=== PATIENT | male | born 2000 | race Hispanic/Latino ===

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

== ENCOUNTER 2020-09-04 08:01 | Day surgery (SDC) | payer BC ==
[2020-09-04] MEDS ORDERED: Ringers Lactate 1,000 ML IV ONE (08:38)
[2020-09-04] MEDS ORDERED: propofoL 200 MG/20 ML VIAL IV ONE (08:48)
[2020-09-04] MEDS ORDERED: LIDOCAINE 1% MPF 30 ML VIAL ONE (08:48)
--- NOTE | 2020-09-04 09:04 | ENDO RPT ---
[address], [address] EGD PROCEDURE REPORT EXAM DATE: 09/04/2020 PATIENT NAME: Ángel Woodruff MR#: [id number] BIRTHDATE: 2000 ATTENDING: [address] STATUS: outpatient [employer] ARCHITECT: Kely Murrieta RN and Steph Clifford INDICATIONS: The patient is a 20 yr old Male here for an EGD due to mid epigastric abdominal pain, bloating, belching, dyspepsia, GERD, and heartburn PROCEDURE PERFORMED: EGD with biopsy MEDICATIONS: Per Anesthesia. TOPICAL ANESTHETIC: none CONSENT: The patient understands the risks and benefits of the procedure and understands that these risks include, but are not limited to: sedation, allergic reaction, infection, perforation and/or bleeding. Alternative means of evaluation and treatment include, among others: physical exam, x-rays, and/or surgical intervention. The patient elects to proceed with this endoscopic procedure. DESCRIPTION OF PROCEDURE: During intra-op preparation period all mechanical medical equipment was checked for proper function. Hand hygiene and appropriate measures for infection prevention was taken. Procedure, possible complications, and alternatives including but not limited to the possibility of bleeding, perforation, tear, infection, sepsis, need for surgery, need for blood transfusion, and anesthesia related complications were explained to the patient. After the risks, benefits and alternatives of the procedure were thoroughly explained, Informed consent was verified, confirmed and timeout was successfully executed by the treatment team. The patient was placed in the left lateral position. The patient was anesthetized with topical anesthesia. Through the anesthetized oropharyngeal area, the scope was passed without any difficulty. The Pentax EG-[id number] ([id number]) endoscope was introduced through the mouth and advanced to the second portion of the duodenum. Retroflexed views revealed a small hiatal hernia. The gastroscope was then slowly withdrawn and removed. LA Class A esophagitis was found in the lower esophagus. A small hiatal hernia was found Mild gastritis was found in the antrum. Multiple biopsies were obtained and sent to pathology. Multiple (3) erosions with mild surrouding edema were found in the antrum. ADVERSE EVENTS: There were no complications. IMPRESSIONS: 1. LA class A esophagitis in the lower esophagus 2. Small hiatal hernia 3. Mild gastritis in the antrum, s/p biopsies 4. Multiple (3) erosions with mild surrouding edema in the antrum RECOMMENDATIONS: 1. await biopsy results 2. acid suppression therapy REPEAT EXAM: Rodriguez Cueva Dr eSigned: Rodriguez Cueva Dr 09/04/2020 9:04 AM cc: CPT CODES: ICD9 CODES: PATIENT NAME: Ángel Woodruff MR#: [id number]
[2020-09-04 10:42] VITALS: TEMP 97.3
[2020-09-04 10:43] VITALS: BP 129/77; O2SAT 99
== END 2020-09-04 09:40 | disposition home or self-care (01) ==
LOC: OR 08:01
PROVIDERS: ATTEND Internal Medicine Gastroenterology
PROC: 0DB68ZX Excision of Stomach, Via Natural or Artificial Opening Endoscopic, Diagnostic (ICD-10-PCS; principal; 2020-09-04 09:00)
DX: K29.50 Unspecified chronic gastritis without bleeding (principal); K21.9 Gastro-esophageal reflux disease without esophagitis; R12 Heartburn; R14.2 Eructation; R14.0 Abdominal distension (gaseous); K44.9 Diaphragmatic hernia without obstruction or gangrene; K25.9 Gastric ulcer, unspecified as acute or chronic, without hemorrhage or perforation; Z20.822 Contact with and (suspected) exposure to COVID-19
CPT/HCPCS: 88312; 88305; 43239; U0003; J2704; J7120

== ENCOUNTER 2022-10-05 17:01 | Emergency (ER) | payer BC ==
--- OUTSIDE RECORDS SUMMARY | 2022-10-05 17:08 | XMS REPORT | Continuity of Care Document ---
:2000 Author Organization [facility] t Address [address] [place] [address] Care Team Providers Name Role Phone KALYANI ROSENTHAL Primary Care Physician Unavailable Radha Jeff Attending Clinician Unavailable JOHANA ENRIQUEZ Attending Clinician Unavailable Zoe DEALER DEVELOPMENT MANAGERJohana Attending Clinician Yas Laboy RN Attending Clinician Unavailable Only, [place] Db Test Attending Clinician Unavailable Suzette Ordonez Attending Clinician SUZETTE OCAMPO Attending Clinician Unavailable SHAQ ZHANG Attending Clinician Unavailable Arun Aguilar MD Attending Clinician ARUN AGUILAR Attending Clinician Unavailable Doctor Unassigned, [place] Attending Clinician Unavailable Rodriguez Cueva Attending Clinician Unavailable Shayy Rivas Attending Clinician SHAYY LAM Attending Clinician Unavailable Nurse, [facility] Attending Clinician Unavailable Lab, Ad[facility] Fam Pob I Attending Clinician Unavailable Vicente DEALER DEVELOPMENT MANAGERShaq Richey Attending Clinician Kalyani Rosenthal Attending Clinician Isaak Jack Attending Clinician Michelle Martinez DO Attending Clinician Payers Payer Name Policy Type Policy Number Effective Date Expiration Date Curtis aguilar [employer] [place] [id number] 2009 00:00:00 Problems Condition Condition Condition Status Onset Resolution Last Treating Co mments Source Name Details Category Date Date Treatment Clinician Date Abnormal Abnormal Disease Active Unive rs weight weight 2-20 ity of gain gain 00:00: [place] 00 Medical Branch Family Family Disease Active Univers history of history of 2-20 it y of thyroid thyroid 00:00: [place] disease disease 00 Medical Branch Mixed Mixed Disease Active Univers hyperlipid hyperlipid 2-20 it y of emia emia 00:00: [place] 00 Medical Branch Nonspecifi Nonspecifi Disease Active U nivers c abnormal c abnormal 2-20 it y [place] thyroid thyroid 00 Medical function function Branch study study Joint pain Joint pain Disease Active U nivers 2-20 ity of 00:00: [place] 00 Medical Branch Allergies, Adverse Reactions, Alerts Allergy Allergy Status Severity Reaction(s) Onset Inactive Treating Comm ents Source Name Type Date Date Clinician CEFDINIR DRUG Active Med Hives 2020-0 Univers INGREDI 3-06 ity of 00:00: [place] 00 Medical Branch Cefdinir Propensi Active Hives 20200 Univer s ty to 3-06 ity of adverse 00:00: [place] reaction 00 Medical s Branch Social History Social Habit Start Date Stop Date Quantity Comments Source Exposure to Not sure [facility] SARS-CoV-2 (event) Medica l Branch Tobacco use and 2020-12-19 2020-12-19 Never used [facility] exposure 00:00:00 00:00:00 Medical Branch Sex Assigned At 2000 2000 [facility] 00:00:00 00:00:00 Medical Branch Smoking Status Start Date Stop Date Source Former smoker 2020-12-19 00:00:00 2020-12-19 00:00:00 [facility] ty [facility] [place] [facility] Unknown if ever smoked Universit y [facility] Medications Ordered Filled Start Stop Current Ordering Indication Dosage Frequency Signature Comments Components Source Medication Medication Date Date Medication? Clinician (SIG) Name Name jill 2 2020-05 Yes APPLY Unive rs % ointment 1-08 TWICE ity of 00:00: DAILY FOR [place] 00 1 WEEK. Medical Branch sulfamethox 2020-05 Yes TAKE 1 Univ ers azole-trime 1-08 TABLET BY ity of thoprim 00:00: MOUTH [place] 800-160 mg 00 TWICE Medical per tablet DAILY FOR Bran ch 10 DAYS. acetaminoph 2019-05 2020- No 975mg 975 mg, U nivers en -19 03-30 Oral, ity of (TYLENOL) 03:00: 02:16 ONCE, 1 [place] tablet 975 00 :00 dose, Wed Medi mandeep mg 03/29/20 Branch at 2100, Routine benzonatate 2019-05 Yes [id number] 100mg Take 1 Univers 100 mg 1-18 capsule by ity of capsule 00:00: mouth [address] [place] [address] ([facility]) Medical times [place] daily as needed for Cough. benzonatate 2019-05 Yes [id number] 100mg Take 1 Univers 100 mg 1-18 capsule by ity of capsule 00:00: mouth [address] [place] [address] ([facility]) Medical times [place] daily as needed for Cough. benzonatate 2019-05 Yes [id number] 100mg Take 1 Univers 100 mg 1-18 capsule by ity of capsule 00:00: mouth [address] [place] [address] ([facility]) Medical times Branch daily as needed for Cough. benzonatate 2019-05 Yes [id number] 100mg Take 1 Univers 100 mg 1-18 capsule by ity of capsule 00:00: mouth [address] [place] [address] ([facility]) Medical times Branch daily as needed for Cough. benzonatate 2019-05 Yes [id number] 100mg Take 1 Univers 100 mg 1-18 capsule by ity of capsule 00:00: mouth [address] [place] [address] ([facility]) Medical times Branch daily as needed for Cough. benzonatate 2019-05 Yes [id number] 100mg Take 1 Univers 100 mg 1-18 capsule by ity of capsule 00:00: mouth [address] [place] [address] ([facility]) Medical times Branch daily as needed for Cough. benzonatate 2019-05 Yes [id number] 100mg Take 1 Univers 100 mg 1-18 capsule by ity of capsule 00:00: mouth 3 00 (three) Medical times Branch daily as needed for Cough. benzonatate 2020-1 Yes [id number] 100mg Take 1 Univers 100 mg 1-18 capsule by ity of capsule 00:00: mouth 3 00 (three) Medical times Branch daily as needed for Cough. tetanus-dip 2020-0 2020- No .5mL 0.5 mL, Un farrah htheria 3-07 03-07 Intramuscu ity o f toxoids 06:45: 06:33 lar, ONCE, Tyson as (TDVAX) 2-2 00 :00 1 dose, Medic al Lf unit/0.5 07/17/19 Br anch mL at 0045, injection Routine 0.5 mL ibuprofen 2020-0 Yes [id number] 800mg Take 1 Univers 800 mg 3-07 tablet by ity of tablet 00:00: mouth [place] 00 every 8 Medical (eight) Branch hours as needed for Pain (scale 1-3). ibuprofen 2020-0 Yes [id number] 800mg Take 1 Univers 800 mg 3-07 tablet by ity of tablet 00:00: mouth [place] 00 every 8 Medical (eight) Branch hours as needed for Pain (scale 1-3). ibuprofen 2020-0 Yes [id number] 800mg Take 1 Univers 800 mg 3-07 tablet by ity of tablet 00:00: mouth [place] 00 every 8 Medical (eight) Branch hours as needed for Pain (scale 1-3). ibuprofen 2020-0 Yes [id number] 800mg Take 1 Univers 800 mg 3-07 tablet by ity of tablet 00:00: mouth [place] 00 every 8 Medical (eight) Branch hours as needed for Pain (scale 1-3). ibuprofen 2020-0 Yes [id number] 800mg Take 1 Univers 800 mg 3-07 tablet by ity of tablet 00:00: mouth [place] 00 every 8 Medical (eight) Branch hours as needed for Pain (scale 1-3). ibuprofen 2020-0 Yes [id number] 800mg Take 1 Univers 800 mg 3-07 tablet by ity of tablet 00:00: mouth [place] 00 every 8 Medical (eight) Branch hours as needed for Pain (scale 1-3). ibuprofen 2020-0 Yes [id number] 800mg Take 1 Univers 800 mg 3-07 tablet by ity of tablet 00:00: mouth [place] 00 every 8 Medical (eight) Branch hours as needed for Pain (scale 1-3). ibuprofen 2020-0 Yes [id number] 800mg Take 1 Univers 800 mg 3-07 tablet by ity of tablet 00:00: mouth [place] 00 every 8 Medical (eight) Branch hours as needed for Pain (scale 1-3). ibuprofen 2020-0 Yes [id number] 800mg Take 1 Univers 800 mg 3-07 tablet by ity of tablet 00:00: mouth [place] 00 every 8 Medical (eight) Branch hours as needed for Pain (scale 1-3). ibuprofen 2020-0 Yes [id number] 800mg Take 1 Univers 800 mg 3-07 tablet by ity of tablet 00:00: mouth [place] 00 every 8 Medical (eight) Branch hours as needed for Pain (scale 1-3). ibuprofen 2020-0 Yes [id number] 800mg Take 1 Univers 800 mg 3-07 tablet by ity of tablet 00:00: mouth [place] 00 every 8 Medical (eight) Branch hours as needed for Pain (scale 1-3). ibuprofen 2020-0 Yes [id number] 800mg Take 1 Univers 800 mg 3-07 tablet by ity of tablet 00:00: mouth [place] 00 every 8 Medical (eight) Branch hours as needed for Pain (scale 1-3). ibuprofen 2020-0 Yes [id number] 800mg Take 1 Univers 800 mg 3-07 tablet by ity of tablet 00:00: mouth [place] 00 every 8 Medical (eight) Branch hours as needed for Pain (scale 1-3). ibuprofen 2020-0 Yes [id number] 800mg Take 1 Univers 800 mg 3-07 tablet by ity of tablet 00:00: mouth [place] 00 every 8 Medical (eight) Branch hours as needed for Pain (scale 1-3). ibuprofen 2020-0 Yes [id number] 800mg Take 1 Univers 800 mg 3-07 tablet by ity of tablet 00:00: mouth [place] 00 every 8 Medical (eight) Branch hours as needed for Pain (scale 1-3). ibuprofen 2020-0 Yes [id number] 800mg Take 1 Univers 800 mg 3-07 tablet by ity of tablet 00:00: mouth [place] 00 every 8 Medical (eight) Branch hours as needed for Pain (scale 1-3). Immunizations Ordered Filled Immunization Date Status Comments [facility] Immunization Name Name TDAP 2020-12-19 Completed University 00:00:00 [place] [facility] TDAP 2020-12-19 Completed University of 00:00:00 [place] [facility] TDAP 2020-12-19 Completed University of 00:00:00 [place] [facility] TDAP 2020-12-19 Completed University of 00:00:00 [place] [facility] TDAP 2020-12-19 Completed University of 00:00:00 [place] [facility] TDAP 2020-12-19 Completed University of 00:00:00 [place] [facility] Td 2019-07-17 Completed University of 00:00:00 [place] [facility] Td 2019-07-17 Completed University of 00:00:00 [place] [facility] Td 2019-07-17 Completed University of 00:00:00 [place] [facility] Td 2019-07-17 Completed University of 00:00:00 [place] [facility] Td 2019-07-17 Completed University of 00:00:00 [place] [facility] Td 2019-07-17 Completed University of 00:00:00 [place] [facility] Td 2019-07-17 Completed University of 00:00:00 [place] [facility] Td 2019-07-17 Completed University of 00:00:00 [place] [facility] Td 2019-07-17 Completed University of 00:00:00 [place] [facility] Td 2019-07-17 Completed University of 00:00:00 [place] [facility] Td 2019-07-17 Completed University of 00:00:00 [place] [facility] Td 2019-07-17 Completed University of 00:00:00 [place] [facility] Td 2019-07-17 Completed University of 00:00:00 [place] [facility] Td 2019-07-17 Completed University of 00:00:00 [place] [facility] Td 2019-07-17 Completed University of 00:00:00 [place] [facility] Td 2019-07-17 Completed University of 00:00:00 [facility] Branch Vital Signs Vital Name Observation Time Observation Value Comments Source Systolic blood 2021-05-10 23:00:00 133 mm[Hg] Univer sity of pressure [facility] Diastolic blood 2021-05-10 23:00:00 86 mm[Hg] Unive rsity of pressure [facility] Heart rate 2021-05-10 23:00:00 95 /min Universi [facility] Body temperature 2021-05-10 23:00:00 36.89 Maru Univ ersity of [facility] Branch Respiratory rate 2021-05-10 23:00:00 18 /min Univ ersity of [place] [facility] Body height 2021-05-10 23:00:00 177.8 cm Universi ty [facility] [place] [facility] Body weight 2021-05-10 23:00:00 147.873 kg Universi ty [facility] [place] [facility] BMI 2021-05-10 23:00:00 46.78 kg/m2 Universi ty [facility] [place] [facility] Oxygen saturation in 2021-05-10 23:00:00 100 /min University of Arterial blood by [place] Med[facility] mandeep Pulse oximetry Branch Systolic blood 2020-12-19 20:57:00 128 mm[Hg] Univer sity of pressure [place] [facility] Diastolic blood 2020-12-19 20:57:00 66 mm[Hg] Unive rsity of pressure [place] [facility] Heart rate 2020-12-19 20:57:00 98 /min Universi ty of [place] [facility] Body temperature 2020-12-19 20:57:00 36.72 Maru Univ ersity of [place] [facility] Respiratory rate 2020-12-19 20:57:00 17 /min Univ ersity of [place] [facility] Body height 2020-12-19 20:57:00 177.8 cm Universi ty [facility] [place] [facility] Body weight 2020-12-19 20:57:00 149.687 kg Universi ty of [place] [facility] BMI 2020-12-19 20:57:00 47.35 kg/m2 Universi ty [facility] [place] [facility] Oxygen saturation in 2020-12-19 20:57:00 99 /min University of Arterial blood by [place] Medi mandeep Pulse oximetry Branch Oxygen saturation in 2020-03-30 03:00:57 99 /min University of Arterial blood by [place] Medi mandeep Pulse oximetry Branch Heart rate 2020-03-30 03:00:57 87 /min Universi ty of [place] [facility] Body temperature 2020-03-30 03:00:57 37.5 Maru Univ ersity of [place] [facility] Respiratory rate 2020-03-30 03:00:57 18 /min Univ ersity of [place] [facility] Systolic blood 2020-03-30 00:15:00 160 mm[Hg] Univer sity of pressure [place] [facility] Diastolic blood 2020-03-30 00:15:00 96 mm[Hg] Unive rsity of pressure [place] [facility] Body weight 2020-03-30 00:15:00 140.615 kg Universi ty of [place] [facility] Oxygen saturation in 2020-03-30 03:00:57 99 /min University of Arterial blood by [place] Medi mandeep Pulse oximetry Branch Heart rate 2020-03-30 03:00:57 87 /min Universi ty of [place] [facility] Body temperature 2020-03-30 03:00:57 37.5 Maru Univ ersity of [place] [facility] Respiratory rate 2020-03-30 03:00:57 18 /min Univ ersity of [place] [facility] Systolic blood 2020-03-30 00:15:00 160 mm[Hg] Univer sity of pressure [place] [facility] Diastolic blood 2020-03-30 00:15:00 96 mm[Hg] Unive rsity of pressure [place] [facility] Body weight 2020-03-30 00:15:00 140.615 kg Universi ty of [place] [facility] Systolic blood 2019-07-26 20:49:00 148 mm[Hg] Univer sity of pressure [place] [facility] Diastolic blood 2019-07-26 20:49:00 90 mm[Hg] Unive rsity of pressure [place] [facility] Heart rate 2019-07-26 20:49:00 80 /min Universi ty of [place] [facility] Body temperature 2019-07-26 20:49:00 37.28 Maru Univ ersity of [place] [facility] Body weight 2019-07-26 20:49:00 140.615 kg Universi ty of [place] [facility] Oxygen saturation in 2019-07-26 20:49:00 98 /min University of Arterial blood by [facility] mandeep Pulse oximetry Branch Systolic blood 2019-07-26 20:49:00 148 mm[Hg] Univer sity of pressure [place] [facility] Diastolic blood 2019-07-26 20:49:00 90 mm[Hg] Unive rsity of pressure [place] [facility] Heart rate 2019-07-26 20:49:00 80 /min Universi ty of [place] [facility] Body temperature 2019-07-26 20:49:00 37.28 Maru Univ ersity of [place] [facility] Body weight 2019-07-26 20:49:00 140.615 kg Universi ty [facility] [place] [facility] Oxygen saturation in 2019-07-26 20:49:00 98 /min University of Arterial blood by [place] Medi mandeep Pulse oximetry Branch Systolic blood 2019-07-17 06:00:00 163 mm[Hg] Univer sity of pressure [place] [facility] Diastolic blood 2019-07-17 06:00:00 104 mm[Hg] Unive rsity of pressure [facility] Heart rate 2019-07-17 06:00:00 79 /min Universi ty of [facility] Respiratory rate 2019-07-17 06:00:00 17 /min Univ ersity of [facility] Oxygen saturation in 2019-07-17 06:00:00 99 /min University of Arterial blood by [facility] [place] [facility] Pulse oximetry Branch Body temperature 2019-07-17 05:28:00 35.94 Maru Univ ersity of [facility] Body height 2019-07-17 05:28:00 177.8 cm Universi ty of [facility] Body weight 2019-07-17 05:28:00 140.615 kg Universi ty of [facility] BMI 2019-07-17 05:28:00 44.48 kg/m2 Universi ty of [facility] Systolic blood 2019-07-17 06:00:00 163 mm[Hg] Univer sity of pressure [facility] Diastolic blood 2019-07-17 06:00:00 104 mm[Hg] Unive rsity of pressure [facility] Heart rate 2019-07-17 06:00:00 79 /min Universi ty of [facility] Respiratory rate 2019-07-17 06:00:00 17 /min Univ ersity of [facility] Oxygen saturation in 2019-07-17 06:00:00 99 /min University of Arterial blood by [facility] [place] [facility] Pulse oximetry Branch Body temperature 2019-07-17 05:28:00 35.94 Maru [facility] ersity [facility] Body height 2019-07-17 05:28:00 177.8 cm Universi ty of [facility] Body weight 2019-07-17 05:28:00 140.615 kg Universi ty of [facility] BMI 2019-07-17 05:28:00 44.48 kg/m2 Universi ty [facility] Procedures Procedure Date / Time Performed Performing Clinician Sourc e TDAP VACCINE, >11 YRS, 2020-12-19 21:07:32 Arun Aguilar [facility] ASSIGNMENT OF BENEFITS 2020-12-19 20:51:11 Doctor Unassigned, No [facility] XR CHEST 1 VW COVID 2020-03-30 01:24:24 Shayy [facility] NOTICE OF PRIVACY 2020-03-30 00:11:23 Doctor Unassigned, No Univ ersity of [place] PRACTICES Name [facility] NOTICE OF PRIVACY 2019-07-26 20:36:54 [facility] CONSENT/REFUSAL FOR 2019-07-26 20:36:41 Doctor Unassigned, No [facility] AND Name [facility] TREATMENT AL RESUP NPTERF WND 2019-07-17 06:04:38 Michelle Martinez [facility] [place] BODY 2.6-7.5 CM Medical Branch Encounters Start End Encounter Admission Attending Care Care Encounter Source Date/Time Date/Time Type Type Clinicians Facility Department ID 2021-06-[address] [facility] [id number] Common 14:02:24 Radha [id number] [facility] 2021-06-06 [facility] [id number] Common 13:29:19 Radha [id number] [facility] 2021-05-10 2021-05-10 Outpatient R ZOE [facility] [id number] Univers [facility]10 2021-05-10 Urgent Zoe [facility] [[email or web address]] 1.2.840.114 [id number] Univers 17:00:00 17:30:43 [facility] [id number] it y of [place] [id number] Tyson as PRANAV?BLEA [phone] [address] MEDICAL OFFICE BUILDING 2021-03-02 2021-03-02 Letter JACKIE Laboy 1.2.840.114 [id number] Univers 00:00:00 00:00:00 (Out) Yas MORENO [id number] it y of [facility] 4.2.7.2.686 [place] as [phone] [address] 2021-03-01 2021-03-01 Laboratory Only, Ang Db Test [facility] [[email or web address]] 1.2.8 40.114 [id number] Univers 13:22:08 13:37:08 Only Zoe Johana [facility] [id number] ity of [place] [id number] Tyson as Pranav?Blea [phone] Nm dicrichard balbuenaey [address] [place] [facility] 2021-03-01 2021-03-01 Outpatient R ZOE [facility] [id number] Univers 13:30:00 13:30:00 [facility] 2021-02-28 2021-02-28 Laboratory Only, Ang Db Test [facility] [[email or web address]] 1.2.8 40.114 [id number] Univers 10:16:45 10:31:45 Only [facility] [id number] ity of [place] [id number] Tyson as Pranav?Blea [phone] [facility] [address] Office [facility] 2021-02-28 2021-02-28 Outpatient R TERRENCE, [facility] [id number] Univers 10:15:00 10:15:00 [facility] o f [facility] 2020-12-26 2020-12-26 Outpatient R VICENTE [facility] [id number] Univers 10:00:00 10:00:00 [facility] 2020-12-26 2020-12-26 Ovidio Enriquez [facility] [[email or web address]] 1.2.840.114 [id number] Univers 00:00:00 00:00:00 (Out) [facility] [id number] it y of [place] [id number] Tyson as Pranav?Blea [phone] Nm dicrichard gordon [address] [facility] 2020-12-19 2020-12-19 [facility] 1.2.840.114 [id number] Univers 15:52:45 16:23:31 Care [facility] [id number] it y of [place] 4.2.7.2.686 Tyson as Professio [phone] Nm dical nal [address] [place] [address] One 2020-12-19 2020-12-19 Outpatient R JEFF [facility] [id number] Univers 16:00[facility]00 [facility]00[facility] 2020-12-19 2020-12-19 Orders Doctor JACKIE 1.2.840.114 [id number] Univers 00:00:00 00:00:00 Only Unassigned, JOSH [id number] ity of [place] [facility] 4.2.7.2.686 Tyson as [phone] [facility] 009 Branch 2020-09-04 2020-08-24 Inpatient Hammad, [facility] [id number] [facility] 09:45:00 18:04:[address] [place] [address] 2020-03-29 2020-03-29 Emergency Lam, [facility] [[email or web address]] 1.2.802.010 [id number] Univers 18:19:00 22:30:00 Shayy [place] [id number] i ty of [place] 4.2.7.2.686 [place] [phone] [place] 546924 [place] 2020-03-29 2020-03-29 Emergency Carole, [facility] [[email or web address]] 1.2.364.086 [id number] 18:19:00 22:30:00 Shayy [place] [id number] [place] 4.2.7.2.686 Waka [phone] [facility] 2020-03-29 2020-03-29 Emergency X CAROLE, [facility] [[email or web address]] ERT [id number] Univers 18:19:00 18:19:00 SHAYY ity [facility] 2020-03-27 2020-03-27 Telephone Nurse, [place] [facility] [[email or web address]] 1.2.840.114 [id number] Univers 00:00:00 00:00:00 [facility] [id number] ity of Surgical 4.2.7.2.686 Tyson as Specialti [phone] Nm dical [address] [facility] 2020-03-27 2020-03-27 Telephone Nurse, [place] [facility] [[email or web address]] 1.2.840.114 [id number] 00:00:00 00:00:00 Urgent Care Health [id number] Surgical 4.2.7.2.686 Specialti [phone] es [address] [place] [address] 2020-03-22 2020-03-22 Laboratory Lab, Adc Fam Pob I [facility] [[email or web address]] 1.2. 840.114 [id number] Univers 16:52:40 17:12:40 Only Caitie [facility] [id number] ity of [place] 4.2.7.2.686 Tyson as Professio [phone] [address] 2020-03-22 2020-03-22 Laboratory Lab, [facility] 1.2.840.114 [id number] 16:52:40 17:12:40 Only Fam Gtb I Health 350.1.13.10 [place] 4.2.7.2.686 Professio [phone] [address] 2020-03-22 2020-03-22 Letter Doctor MEJIA 1.2.840.114 [id number] Univers 00:00:00 00:00:00 (Out) Unassigned, JOSH [id number] ity of [place] [facility] 4.2.7.2.686 Tyson as [phone] [address] 2020-03-22 2020-03-22 Letter Doctor MEJIA 1.2.840.114 [id number] Univers 00:00:00 00:00:00 (Out) Unassigned, JOSH 350.1.13.10 ity of [place] [facility] 4.2.7.2.686 Tyson as [phone] [address] 2020-03-22 2020-03-22 Letter Kalyani Rosenthal [facility] [[email or web address]] 1.2.840.114 [id number] Univers 00:00:00 00:00:00 (Out) Health 350.1.13.10 it y of [place] 4.2.7.2.686 Tyson as Professio [phone] [address] 2020-03-22 2020-03-22 Letter Doctor MEJIA 1.2.840.114 [id number] 00:00:00 00:00:00 (Out) Unassigned, JOSH 350.1.13.10 [place] [facility] 4.2.7.2.686 [phone] [facility] 2020-03-22 2020-03-22 Letter Doctor MEJIA 1.2.840.114 [id number] 00:00:00 00:00:00 (Out) Unassigned, JOSH 350.1.13.10 [place] [facility] 4.2.7.2.686 [id number] [id number] 2020-03-22 2020-03-22 Kalyani Prado [facility] [[email or web address]] 1.2.840.114 [id number] 00:00:00 00:00:00 (Out) Health [id number] [place] 4.2.7.2.686 Professio [phone] nal [address] One 2019-07-26 2019-07-26 Emergency Isaak Mora [facility] [[email or web address]] 1.2.840.114 [id number] Univers 15:51:06 16:37:00 T [place] 350.1.13.10 i ty of [place] 4.2.7.2.686 [facility] [phone] [address] 2019-07-26 2019-07-26 Emergency Isaak Mora [facility] [[email or web address]] 1.2.840.114 [id number] 15:51:06 16:37:00 T Sarita 350.1.13.10 [place] 4.2.7.2.686 Waka [phone] [facility] 2019-07-26 2019-07-26 Emergency X [facility] [[email or web address]] ERT [id number] Univers 15:37:00 15:37:00 ity of [facility] 2019-07-26 2019-07-26 Orders Doctor JACKIE 1.2.840.114 [id number] Univers 00:00:00 00:00:00 Only Unassigned, JOSH 350.1.13.10 ity of [place] [facility] 4.2.7.2.686 Tyson [phone] [address] 2019-07-26 2019-07-26 Orders Doctor MEJIA [id number] 00:00:00 00:00:00 Only Unassigned, JOSH [id number] [facility] [id number] 2019-07-16 2019-07-17 Emergency Juan, [facility] [[email or web address]] [id number] [facility] 23:25:08 00:51:00 Michelle Stein [id number] ity of [place] [id number] [facility] [phone] [address] 2019-07-16 2019-07-17 Emergency Juan, [facility] [[email or web address]] [id number] 23:25:08 00:51:00 Michelle Stein [id number] [place] [id number] [place] [id number] 2019-07-16 2019-07-16 Emergency X [facility] [[email or web address]] ERT [id number] Univers 23:25:08 23:25:08 ity of [facility] Results Test Description Test Time Test Comments Results Result Sourc e Comments XR CHEST 1 VW 2020-03-12 No acute [facility] of COVID 9 cardiopulmonary [facility] 01:52:56 abnormality. Branch Disclaimer: Generally, the findings on chest imaging in COVID-19 are notspecific, and overlap with other infections, including influenza, H1N1,SARS and MERS.According to the Centers for Disease Control (CDC) and the [employer], viral testing remains the only specific method of diagnosiseven if CXR or CT findings are suggestive of COVID-19. Preliminary Report Dictated by Resident: Jagdeep Harrington MD., have reviewed this study and agree with theabove report.PROCEDURE: CHEST XRAY one view, CLINICAL INDICATION: Cough COMPARISON: None FINDINGS: Suboptimal intraoperative volumes results in vascular crowding. No focalconsolidation, pleural effusion, or pneumothorax. The heart is normal insize. No acute osseous abnormality. [facility], Radiant Results Inft User - 03/29/2020 7:54 PM CSTPROCEDURE: CHEST XRAY one view, CLINICAL INDICATION: Cough COMPARISON: NoneFINDINGS:Subopti mal intraoperative volumes results in vascular crowding. No focalconsolidation, pleural effusion, or pneumothorax. The heart is normal insize. No acute osseous abnormality.IMPRESSI ONNo acute cardiopulmonary abnormality.Disclaim er: Generally, the findings on chest imaging in COVID-19 are notspecific, and overlap with other infections, including influenza, H1N1,SARS and MERS.According to the Centers for Disease Control (CDC) and the [employer], viral testing remains the only specific method of diagnosiseven if CXR or CT findings are suggestive of COVID-19. Preliminary Report Dictated by Resident: Jagdeep Colon MD., have reviewed this study and agree with theabove report. Laceration 2019-07-0 Michelle Martinez, Unive rsity of Repair 7 DO ? ? 07/17/2019 [facility] 06:04:38 12:05 AMLaceration Branch RepairDate/Time: 07/17/2019 12:05 AMPerformed by: Michelle Martniez DOAuthorized by: Michelle Martinez, DO Consent: ?Consent obtained: ?Verbal ?Consent given by: ?PatientAnesthesia (see MAR for exact dosages): ?Anesthesia method: ?Local infiltration ?Local anesthetic: ?Lidocaine 1% w/o epiLaceration details: ?Location: ?Hand ?Hand location: ?R palm ?Length (cm): ?4Repair type: ?Repair type: ?SimplePre-procedure details: ?Preparation: ?Patient was prepped and draped in usual sterile fashionExploration: ?Wound exploration: wound explored through full range of motion ? ?Contaminated: no ?Treatment: ?Area cleansed with: ?Saline ?Amount of cleaning: ?Standard ?Irrigation solution: ?Sterile saline ?Irrigation method: ?Pressure wash ?Visualized foreign bodies/material removed: no ?Skin repair: ?Repair method: ?Sutures ?Suture size: ?4-0 ?Suture material: ?Prolene ?Suture technique: ?Simple interrupted ?Number of sutures: ?9Approximation: ?Approximation: ?ClosePost-procedure details: ?Dressing: ?Adhesive bandage ?Patient tolerance of procedure: ?Tolerated well, no immediate complications
[2022-10-05] MEDS ORDERED: dexAMETHasone 10 MG/ML VIAL ONE (18:02)
--- NOTE | 2022-10-05 18:08 | ER ---
Nurse's Notes [facility] Name: Ángel Woodruff Age: 22 yrs Sex: Male : 2000 Arrival Date: 10/05/2022 Time: 17:01 Bed 12 Private MD: Diagnosis: Hymenoptera envenomation Presentation: 10/05 17:05 Chief complaint: Patient states: Stung by red wasp, right ankle, about 30 min ago. "im nj1 highly allergic to yellow jackets". Pt states he took 2 benadryls and came over because 10 min ago he started feeling tingling and chest tightness. 17:05 Method Of Arrival: Ambulatory [facility] 17:05 Coronavirus screen: Vaccine status: Patient reports receiving the 2nd dose of the covid nj1 vaccine. Ebola Screen: Patient denies travel to an Ebola-affected area in the 21 days before illness onset. Onset: The symptoms/episode began/occurred 30 minute(s) ago. Anaphylaxis evaluation, the patient reports or I have noted the following symptoms which indicate a significant risk of anaphylaxis: chest pain. Initial Sepsis Screen: Does the patient meet any 2 criteria? HR > 90 bpm. No. Patient's initial sepsis screen is negative. Does the patient have a suspected source of infection? No. Patient's initial sepsis screen is negative. Risk Assessment: Do you want to hurt yourself or someone else? Patient reports no desire to harm self or others. Onset of symptoms was October 05, 2022 at 16:40. 17:05 Acuity: DILLAN 3 nj1 Historical: - Allergies: 17:14 Omnicef; nj1 17:14 Wasps; nj1 - PMHx: 17:14 None; nj1 - PSHx: 17:14 None; nj1 - Immunization history:: Client reports receiving the 2nd dose of the Covid vaccine. - Social history:: Smoking status: Patient denies any tobacco usage or history of. Screenin:00 [facility] ED Fall Risk Assessment (Adult) Score/Fall Risk Level 0 - 2 = Low Risk hb Oriented to surroundings, Maintained a safe environment. Abuse screen: Denies threats or abuse. Denies injuries from another. Nutritional screening: No deficits noted. Tuberculosis screening: No symptoms or risk factors identified. Assessment: 18:00 General: Appears in no apparent distress. Behavior is calm, cooperative. Pain: Denies hb pain. Neuro: Level of Consciousness is awake, alert, obeys commands, Oriented to person, place, time, situation. Cardiovascular: Patient's skin is warm and dry. Respiratory: Respiratory effort is even, unlabored, Respiratory pattern is regular, symmetrical. GI: No signs and/or symptoms were reported involving the gastrointestinal system. : No signs and/or symptoms were reported regarding the genitourinary system. EENT: No signs and/or symptoms were reported regarding the EENT system. Derm: Skin is pink, warm \\T\\ dry. Musculoskeletal: No signs and/or symptoms reported regarding the musculoskeletal system. Vital Signs: 17:05 BP 140 / 92; Pulse 101; Resp 18; Temp 99.4(O); Pulse Ox 100% on R/A; Weight 138.35 kg; nj1 Height 5 ft. 10 in. ; 17:05 Body Mass Index 43.76 (138.35 kg, 177.8 cm) [facility] ED Course: 17:06 Patient arrived in ED. ts1 17:07 Justin Lewis PA is PHCP. ezequiel 17:07 Gavin Moreira MD is Attending Physician. [facility] 17:14 Triage completed. [facility] 17:14 Arm band placed on. [facility] 18:00 Patient has correct armband on for positive identification. hb 18:15 No provider procedures requiring assistance completed. Patient did not have IV access hb during this emergency room visit. Administered Medications: 17:40 Drug: Dexamethasone IM 10 mg Route: IM; Site: right deltoid; hb Medication: 18:00 VIS not applicable for this client. hb Outcome: 18:07 Discharge ordered by . [facility] 18:15 Discharged to home ambulatory, with significant other. hb 18:15 Condition: stable 18:15 Discharge instructions given to patient, significant other, Instructed on discharge instructions, follow up and referral plans. medication usage, Demonstrated understanding of instructions, follow-up care, medications, Prescriptions given X 2. 18:16 Patient left the ED. hb Signatures: Justin Lewis PA PA jmm Baxter, Heather, RN RN Coeltte Dillard RN RN nj Renate Cortes PAS [facility] Corrections: (The following items were deleted from the chart) 17:51 17:41 Discharged to home ambulatory, with family, hb hb 17:51 17:41 Condition: improved hb hb 17:51 17:41 Discharge instructions given to patient, Instructed on discharge instructions, hb follow up and referral plans. Demonstrated understanding of instructions, follow-up care, medications, Prescriptions given X 1, hb
--- NOTE | 2022-10-05 18:08 | EDPHYS ---
Physician Documentation [facility] Name: Ángel Woodruff Age: 22 yrs Sex: Male : 2000 Arrival Date: 10/05/2022 Time: 17:01 Bed 12 Private MD: ED Physician Gavin Moreira HPI: 10/05 17:14 This 22 yrs old Male presents to ER via Ambulatory with complaints of Allergic jmm Reaction. 17:14 The patient presents with rash, redness of skin. Onset: The symptoms/episode jmm began/occurred acutely, 2 hour(s) ago. This is a 22-year-old male with no known chronic medical conditions the presents emerged department with complaints of mild swelling to the right foot. Patient states he was stung by a wasp states being highly allergic. Most recent sting was when he was 6 years old. Denies swelling, denies shortness of breath.. Historical: - Allergies: 17:14 Omnicef; nj1 17:14 Wasps; nj1 - PMHx: 17:14 None; nj1 - PSHx: 17:14 None; nj1 - Immunization history:: Client reports receiving the 2nd dose of the Covid vaccine. - Social history:: Smoking status: Patient denies any tobacco usage or history of. ROS: 17:14 Constitutional: Negative for fever, chills, and weight loss, Cardiovascular: Negative jmm for chest pain, palpitations, and edema, Respiratory: Negative for shortness of breath, cough, wheezing, and pleuritic chest pain. 17:14 Skin: Positive for rash, swelling. 17:14 All other systems are negative. Exam: 17:14 Constitutional: This is a well developed, well nourished patient who is awake, alert, jmm and in no acute distress. Head/Face: atraumatic. Eyes: EOMI, no conjunctival erythema appreciated ENT: Moist Mucus Membranes Neck: Trachea midline, Supple Chest/axilla: Normal chest wall appearance and motion. Cardiovascular: Regular rate and rhythm. No edema appreciated Respiratory: Normal respirations, no respiratory distress appreciated Abdomen/GI: Non distended Back: Normal ROM 17:14 Skin: Mild erythema noted to the right ankle. 17:14 Neuro: Orientation: is normal, Mentation: is normal, Memory: is normal. 17:14 Psych: Behavior/mood is pleasant, cooperative. Vital Signs: 17:05 BP 140 / 92; Pulse 101; Resp 18; Temp 99.4(O); Pulse Ox 100% on R/A; Weight 138.35 kg; nj1 Height 5 ft. 10 in. ; 17:05 Body Mass Index 43.76 (138.35 kg, 177.8 cm) nj1 MDM: 17:14 Patient medically screened. [facility] 18:06 Differential diagnosis: urticaria. Data reviewed: vital signs, nurses notes. I juana considered the following discharge prescriptions or medication management in the emergency department Medications were administered in the Emergency Department. See MAR. Counseling: I had a detailed discussion with the patient and/or guardian regarding: the historical points, exam findings, and any diagnostic results supporting the discharge/admit diagnosis, the need for outpatient follow up, to return to the emergency department if symptoms worsen or persist or if there are any questions or concerns that arise at home. ED course: No worsening symptoms appreciated in the ED. Patient would like to be discharged and will return to the ED if he develops any difficulty breathing. Will prescribe an EpiPen for him to use if he develops increased redness or shortness of breath.. Administered Medications: 17:40 Drug: Dexamethasone IM 10 mg Route: IM; Site: right deltoid; hb Disposition Summary: 10/05/22 18:07 Discharge Ordered Location: Home [facility] Condition: Stable [facility] Diagnosis - Hymenoptera envenomation [facility] Followup: jmm - With: Private Physician - When: 2 - 3 days - Reason: Recheck today's complaints, Continuance of care, Re-evaluation by your physician Discharge Instructions: - Discharge Summary Sheet [facility] - Bee, Wasp, or Hornet Sting, Adult jm Forms: - Medication Reconciliation Form [facility] - Thank You Letter [facility] - Antibiotic Education m - Prescription Opioid Use [facility] - Work release form eb Prescriptions: - EpiPen 0.3 mg/0.3 mL Injection Auto-Injector - administer 0.3 milliliter by INTRAMUSCULAR route once As needed as needed for m anaphylaxis; not to exceed 6 doses per episode; 1 unit; Refills: 0, Product Selection Permitted - Prednisone 20 mg Oral Tablet - take 3 tablets by ORAL route once daily for 5 days; 15 tablet; Refills: 0, [facility] Product Selection Permitted Signatures: Justin Lewis PA PA jmm Baxter, Heather, RN RN hb Colette Dillard, RN RN nj1
[2022-10-05 18:43] VITALS: BP 140/92; TEMP 99.4; O2SAT 100
== END 2022-10-05 18:16 | disposition home or self-care (01) ==
LOC: ER 17:01
DX: R21 Rash and other nonspecific skin eruption (principal); T63.461A Toxic effect of venom of wasps, accidental (unintentional), initial encounter; Z88.1 Allergy status to other antibiotic agents; Z91.038 Other insect allergy status
CPT/HCPCS: 96372; 99284; J1100